=== PATIENT | male | born 1995 | race African-American/Black ===

== ENCOUNTER 2025-04-05 18:57 | Inpatient (IN) ==
--- NOTE | 2025-04-05 19:10 | Emergency Department Note ---
Impression & Plan Syncope, Pneumonia ED Provider Note ED Provider Note NAME: SHLOMO [id number] OMKAR AGE:29 SEX: Male : 1995 ARRIVES VIA: EMS INFORMANT: Patient ED PROVIDER(s): Nancy Perea CHIEF COMPLAINT: syncope HPI: 29-year-old male presents emergency room with complaints of syncope. Patient had been having some pain across his chest. He states that he then had a syncopal episode when he stood up into the middle toilet and his present self. He states that he hit his head and back. He is not really very clear on where he hit his back. He states that since then he has been unable to move his lower extremities or feel them. He states this happened over an hour prior to arrival. States has never had anything like this before. PAST MEDICAL HISTORY:See Below PAST SURGICAL HISTORY:See Below FAMILY HISTORY:See Below SOCIAL HISTORY:See Below HOME MEDICATIONS:See Below ALLERGIES:See Below VITALS:See Below PHYSICAL EXAMINATION: GENERAL: alert, well appearing, well nourished, no distress, non-toxic EYE EXAM: normal conjunctiva, PERRL and EOM's grossly intact OROPHARYNX: no exudate, no erythema, lips, buccal mucosa, and tongue normal and mucous membranes are moist NECK: supple, no nuchal rigidity, no adenopathy, non-tender LUNGS: Clear to auscultation. Normal chest wall mechanics, no w/r/r HEART: no murmurs, S1 normal and S2 normal ABDOMEN: abdomen soft, non-tender, normo-active bowel sounds, no masses, no rebound or guarding. BACK: Back is symmetrical on inspection and there is no deformity, no midline tenderness, no CVA tenderness. SKIN: no rashes, petechiae, orbruising UPPER EXTREMITIES: upper extremities are grossly normal. FROM, nml pulses b/l. LOWER EXTREMITIES: No pitting edema. FROM, nml pulses b/l. NEURO EXAM: Normal sensorium, cranial nerves II-XII grossly intact, normal speech, no facial droop,nogross weakness of arms, no gross weakness of legs. Gross sensation intact. No ataxia. Vital Signs: reviewed and remarkable Differential Diagnosis: Fracture, dislocation, contusion, intra-abdominal, pneumothorax, intrathoracic, intracranial, neurologic, compartment syndrome, rhabdomyolysis, as well as other pathologies. MEDICAL DECISION MAKIN-year-old male presents emergency room with complaints of syncopal with fall and lower extremity weakness and numbness. Spoke with orthospine, they recommend MRI of thoracic and lumbar. Agreeable with admission here if within normal limits. Hospitalist admission given syncope and pneumonia. Consultation(s): orthospine 0157: Discussed with Dr. Alexandre for additional inpatient evaluation and mgmt. ER Treatment Provided: See below Diagnostics Interpreted By Me: -ECG: EKG shows normal sinus rhythm at a rate of [address] changes. -Cardiac Monitoring: An order was placed for continuous cardiac monitoring. The monitor shows a rate of 68 with NS rhythm. -Laboratory studies: As stated above and show below. -Imaging studies: CXR - pna, CT head - no acute, CT C-spine - no acute, CTA Chest - PNA, CT T and L spine - no acute Triage Nursing Note Reviewed Prior/Outside Records Reviewed Procedures: [] Critical Care: [] Past Med/Surg History Problem List (Updated 04/06/25 @ 01:58 by Victoria Mackey DO) Pneumonia (Acute) Syncope (Acute) Social History Smoking Status: Former smoker Hx Alcohol Use: No Hx Substance Use: No Preferred Language: [place] Required: No Beliefs That Will Affect Care: None Current Living Situation: Other Feels Safe at Home: Yes Allergies Allergies Allergy/AdvReac Type Severity Reaction Status Date / Time shellfish derived Allergy Unknown Unknown Verified 04/06/25 04:45 Home Meds Home Medications Medication Instructions Recorded Confirmed duloxetine 30 mg capsule,delayed 30 mg PO DAILY 04/06/25 04/06/25 release risperidone 0.5 mg tablet 0.5 mg PO BID 04/06/25 04/06/25 (Risperdal) Results & Data (ED) Vital Signs Vital Signs - 24 hr 04/05/25 19:00 04/05/25 19:00 04/05/25 19:00 Temperature 36.6 C Temperature Source Pulse Rate 66 66 Pulse Rate [Apical] Pulse Rhythm Pulse Rhythm [Apical] Pulse Strength Pulse Strength [Apical] Respiratory Rate 19 19 Respiratory Effort / Characteristics Respiratory Depth Respiratory Pattern Blood Pressure 131/93 Blood Pressure [Right Arm] Blood Pressure Mean [Right Arm] Blood Pressure Position Blood Pressure Position [Right Arm] Pulse Oximetry 100 100 100 Oxygen Delivery Method Room Air Room Air Room Air Oxygen Flow Rate 0 Sepsis Recent Fever Within 48 Hours Sepsis New/Unexplained Change in Mental Status Sepsis Action Taken by Nursing 04/05/25 19:00 04/05/25 19:02 04/05/25 19:05 Temperature 36.6 C 36.7 C Temperature Source Oral Oral Pulse Rate 67 Pulse Rate [Apical] 66 Pulse Rhythm Regular Pulse Rhythm [Apical] Regular Pulse Strength Normal Pulse Strength [Apical] Normal Respiratory Rate 16 Respiratory Effort / Characteristics Non-Labored Spontaneous Non-Labored Spontaneous Respiratory Depth Normal Normal Respiratory Pattern Regular Regular Blood Pressure Blood Pressure [Right Arm] 131/93 Blood Pressure Mean [Right Arm] 105 Blood Pressure Position Lying Blood Pressure Position [Right Arm] Lying Pulse Oximetry 99 Oxygen Delivery Method Room Air Room Air Oxygen Flow Rate Sepsis Recent Fever Within 48 Hours No Sepsis New/Unexplained Change in Mental Status No Sepsis Action Taken by Nursing No Action Required 04/05/25 19:05 04/05/25 20:00 04/05/25 21:00 Temperature 36.6 C 36.6 C Temperature Source Oral Oral Pulse Rate Pulse Rate [Apical] 73 66 Pulse Rhythm Pulse Rhythm [Apical] Regular Regular Pulse Strength Pulse Strength [Apical] Normal Normal Respiratory Rate 17 17 18 Respiratory Effort / Characteristics Non-Labored Spontaneous Non-Labored Spontaneous Respiratory Depth Normal Normal Respiratory Pattern Regular Regular Blood Pressure Blood Pressure [Right Arm] 125/93 117/81 Blood Pressure Mean [Right Arm] 103 93 Blood Pressure Position Blood Pressure Position [Right Arm] Lying Lying Pulse Oximetry 98 98 95 Oxygen Delivery Method Room Air Room Air Room Air Oxygen Flow Rate Sepsis Recent Fever Within 48 Hours Sepsis New/Unexplained Change in Mental Status Sepsis Action Taken by Nursing 04/05/25 22:00 04/06/25 00:00 04/06/25 01:00 Temperature 36.6 C Temperature Source Oral Pulse Rate Pulse Rate [Apical] 79 92 H 66 Pulse Rhythm Pulse Rhythm [Apical] Regular Regular Regular Pulse Strength Pulse Strength [Apical] Normal Normal Normal Respiratory Rate 18 17 17 Respiratory Effort / Characteristics Non-Labored Spontaneous Non-Labored Spontaneous Non-Labored Spontaneous Respiratory Depth Normal Normal Normal Respiratory Pattern Regular Blood Pressure Blood Pressure [Right Arm] 116/82 128/81 125/76 Blood Pressure Mean [Right Arm] 93 96 92 Blood Pressure Position Blood Pressure Position [Right Arm] Lying Lying Lying Pulse Oximetry 96 98 97 Oxygen Delivery Method Room Air Room Air Room Air Oxygen Flow Rate Sepsis Recent Fever Within 48 Hours Sepsis New/Unexplained Change in Mental Status Sepsis Action Taken by Nursing 04/06/25 02:00 04/06/25 03:00 Temperature Temperature Source Pulse Rate Pulse Rate [Apical] 68 69 Pulse Rhythm Pulse Rhythm [Apical] Regular Pulse Strength Pulse Strength [Apical] Normal Respiratory Rate 17 17 Respiratory Effort / Characteristics Non-Labored Spontaneous Non-Labored Spontaneous Respiratory Depth Normal Normal Respiratory Pattern Regular Regular Blood Pressure Blood Pressure [Right Arm] 128/84 Blood Pressure Mean [Right Arm] 98 Blood Pressure Position Blood Pressure Position [Right Arm] Pulse Oximetry 99 Oxygen Delivery Method Room Air Oxygen Flow Rate Sepsis Recent Fever Within 48 Hours Sepsis New/Unexplained Change in Mental Status Sepsis Action Taken by Nursing Laboratory Data 04/05/25 19:08 04/05/25 19:08 Lab Results 04/05/25 04/05/25 Range/Units 19:08 19:10 WBC 6.63 (4.8-10.8) K/ul RBC 5.32 (4.70-6.10) M/uL Hgb 16.0 (14.0-18.0) g/dL POC Hgb 16.0 (14.0-18.0) g/dl Hct 46.2 (42.0-52.0) % POC Hct 47 (42-52) % MCV 86.8 (80.0-100.0) fL MCH 30.1 (25.0-34.0) pg MCHC 34.6 (32.0-36.0) g/dL RDW Std Deviation 37.4 (36.4-46.3) fL RDW Coeff of Anand 11.9 (11.5-14.5) % Plt Count 220 (130-400) K/uL MPV 8.7 L (9.4-12.4) fL Immature Gran % (Auto) 0.3 % Neut % (Auto) 72.9 % Lymph % (Auto) 11.5 % Borden % (Auto) 9.5 % Eos % (Auto) 5.3 % Baso % (Auto) 0.5 % Neut # (Auto) 4.84 (1.40-6.50) K/uL Lymph # (Auto) 0.76 L (1.20-3.40) K/uL Borden # (Auto) 0.63 H (0.11-0.59) K/uL Eos # (Auto) 0.35 (0.00-0.50) K/uL Baso # (Auto) 0.03 (0.00-0.20) K/uL Immature Gran # (Auto) 0.02 (0.01-0.20) K/uL POC Sodium 139 (135-144) mmol/L Sodium 136 (136-145) mmol/L POC Potassium 4.1 (3.3-5.0) mmol/L Potassium 4.0 (3.5-5.1) mmol/L POC Chloride 104 (101-112) mmol/L Chloride 106 (98-107) mmol/L Carbon Dioxide 24 (21-32) mmol/L POC Total CO2 22 L (24-31) mmol/L Anion Gap 6 (3-11) POC Anion Gap 18.0 (16-25) mmol/L POC BUN 10 (7-18) mg/dl BUN 10 (6-23) mg/dl Creatinine 0.88 (0.6-1.4) mg/dl POC Creatinine 0.9 (0.6-1.3) mg/dl Est Cr Clr Drug Dosing 130.7 ml/min eGFR 118.63 BUN/Creatinine Ratio 11.4 (10-20) Glucose 102 H (70-99(Fasting)) mg/dl POC Glucose (other) 100 H (70-99) mg/dl Calcium 9.4 (8.6-10.3) mg/dl POC Ioniz Calcium Dany 1.22 (1.12-1.32) mmol/l Total Bilirubin 0.5 (0.2-1.0) mg/dl AST 22 (13-39) U/L ALT 10 (7-52) U/L Alkaline Phosphatase 74 (34-104) U/L Troponin I High Sens 4.3 (0-20) pg/ml Total Protein 7.1 (6.0-8.3) gm/dl Albumin 4.2 (3.4-5.0) gm/dl Globulin 2.9 (2.5-4.0) gm/dl Albumin/Globulin Ratio 1.4 (0.9-2) Lipase 10 L (11-82) U/L Administered Medications Discontinued Medications Doxycycline Hyclate (Doxycycline Hyclate 100 Mg Cap) 100 mg PO NOW STA Stop: 04/05/25 20:40 Last Admin: 04/05/25 21:52 Dose: Not Given Documented By: DEMARCUS Hydromorphone HCl (Hydromorphone Inj 0.5 Mg/0.5 Ml Syr) 0.5 mg IV NOW STA Stop: 04/05/25 20:34 Last Admin: 04/05/25 20:39 Dose: 0.5 mg Documented By: DEMARCUS Cefepime HCl (Maxipime 2000mg) 2,000 mg in 20 mls @ 5 mls/min IV NOW STA; Protocol Stop: 04/05/25 20:42 Last Admin: 04/05/25 21:25 Dose: 5 mls/min Documented By: DEMARCUS Ioversol (Optiray 320 125ml) 118 ml IV ONCE ONE Stop: 04/05/25 19:35 Last Admin: 04/05/25 19:34 Dose: 118 ml Documented By: NELL Miscellaneous Information (Patient's Allergy Info Needs Entered) 1 each N/A NOW STA Stop: 04/06/25 04:33 Last Admin: 04/06/25 04:47 Dose: 1 each Documented By: JACEK Imaging Data Radiologist's Impression: Cervical Spine CT 04/05/25 19:06 CT CERVICAL SPINE WITHOUT CONTRAST: HISTORY: Trauma TECHNIQUE: Noncontrast CT examination of the cervical thoracic lumbar spine is performed. Coronal and sagittal reformats were created. COMPARISON: None. FINDINGS: CERVICAL SPINE: There is no significant vertebral body height loss. No acute traumatic fracture identified. There is no significant spondylolisthesis. Visualized soft tissues of neck are unremarkable. IMPRESSION: No acute traumatic fracture of the cervical spine. Multilevel degenerative changes as above Chronic right orbital floor defect. Electronically signed by Wally Alonzo 04-05-2025 8:[address] 04/05/25 19:06 CT HEAD: HISTORY: Headaches TECHNIQUE: Noncontrast CT examination of the head is performed. Coronal and sagittal reformats were created. COMPARISON: FINDINGS: There is no evidence of intracranial hemorrhage, focal mass effect or midline shift. No fluid collection is identified. The ventricular system is midline and symmetric. No evidence of acute major vascular territory infarction. No calvarial fracture is identified. The paranasal sinuses and mastoids are well aerated. IMPRESSION: No acute intracranial process identified. Electronically signed by Wally Alonzo 04-05-2025 7:[address] 04/05/25 19:06 CT LUMBAR SPINE WITHOUT CONTRAST: HISTORY: TRAUMA TECHNIQUE: Noncontrast CT examination of the lumbar spine is performed. Coronal and sagittal reformats were created. COMPARISON: None. FINDINGS: LUMBAR SPINE: There is no significant vertebral body height loss. No acute traumatic fracture identified. There is no significant spondylolisthesis. Usual lumbar lordosis is preserved. Mild multilevel degenerative changes characterized by disc space loss, broad based disc bulge/herniations with endplate changes of the vertebral bodies with small marginal osteophytes as well as bilateral facet hypertrophy and thickening of the ligamentum flavum resulting in crowding of the subarticular recesses and narrowing of neural foramina worst at L4-S1. IMPRESSION: No acute traumatic fracture of the lumbar spine. Multilevel degenerative changes as above Electronically signed by Wally Alonzo 04-05-2025 8:[address] 04/05/25 19:06 CT THORACIC SPINE WITHOUT CONTRAST: HISTORY: TRAUMA TECHNIQUE: Noncontrast CT examination of the thoracic spine is performed. Coronal and sagittal reformats were created. COMPARISON: None. FINDINGS: THORACIC SPINE: There is no significant vertebral body height loss. No acute traumatic fracture identified. There is no significant spondylolisthesis. Usual thoracic kyphosis is preserved. Multilevel degenerative changes characterized by disc space loss with endplate changes of the vertebral bodies with small marginal osteophytes. IMPRESSION: No acute traumatic fracture of the thoracic spine. Multilevel degenerative changes as above Electronically signed by Wally Alonzo 04-05-2025 7:59 PM Chest CTA 04/05/25 19:07 CT PULMONARY ANGIOGRAM. HISTORY: Chest pain TECHNIQUE: Enhanced CT examination of the chest was performed using pulmonary embolism protocol. IV CONTRAST: 100 mL of OMNIPAQUE 300 COMPARISON: FINDINGS: PULMONARY ARTERIES: No filling defect identified to the segmental level. LYMPH NODES: No lymphadenopathy by size criteria. CARDIOVASCULAR: Normal cardiac size. No pericardial effusion. No aortic aneurysm. There are coronary artery calcifications in keeping with coronary artery disease. MEDIASTINUM: No solid or cystic mediastinal masses. The esophagus is normally decompressed. LUNGS/PLEURA: The central tracheo-bronchial tree is patent. Patchy infiltrates in the left upper lobe (series 10, image 91). No pleural effusion or pneumothorax. No suspicious pulmonary nodules. BONES: No suspicious osseous lesions. OTHER: There is a large amount of intravascular contrast noted over the left shoulder and the left chest wall that also demonstrate swelling. This could be due to IV infiltration. Please clinically correlate. VISUALIZED LOWER NECK: Unremarkable. VISUALIZED UPPER ABDOMEN: Unremarkable IMPRESSION: No pulmonary embolism identified to the segmental level. No evidence of definite trauma in the thorax. Patchy pneumonia in the left upper lobe There is a large amount of intravascular contrast noted over the left shoulder and the left chest wall that also demonstrate swelling. This could be due to IV infiltration. Please clinically correlate. Electronically signed by Wally Alonzo 04-05-2025 8:20 PM Chest X-Ray 04/05/25 19:07 EXAM: Portable AP chest radiograph TECHNIQUE: AP portable radiograph of the chest was obtained. INDICATION: Trauma Comparison: None FINDINGS: LINES and TUBES: None CARDIOVASCULAR: Cardiac silhouette is normal in size. LUNGS/PLEURA: Patchy infiltrates in the right upper lobe no significant pleural fluid. No discernible pneumothorax. OSSEOUS/OTHER: No displaced acute osseous process identified. IMPRESSION: Patchy pneumonia in the right upper lobe Electronically signed by Wally Alonzo 04-05-2025 8:20 PM Lumbar Spine MRI 04/05/25 21:12 Exam(s): MRI L SPINE Without Contrast EXAM: MR Lumbar Spine Without Intravenous Contrast CLINICAL HISTORY: Reason for exam: low extremity paralysis and paresthesias s/p fall. TECHNIQUE: Magnetic resonance images of the lumbar spine without intravenous contrast in multiple planes. COMPARISON: No relevant prior studies available. FINDINGS: Vertebrae: Unremarkable. No acute fracture. Spinal cord: Unremarkable. Normal signal. Soft tissues: Unremarkable. DISCS/SPINAL CANAL/NEURAL FORAMINA: L1-L2: Unremarkable. No significant disc disease. No stenosis. L2-L3: Unremarkable. No significant disc disease. No stenosis. L3-L4: Unremarkable. No significant disc disease. No stenosis. L4-L5: Unremarkable. No significant disc disease. No stenosis. L5-S1: Unremarkable. No significant disc disease. No stenosis. IMPRESSION: Normal lumbar spine MRI. Electronically signed by: Mendoza Hughes MD 04/06/25 01:15 AM Thoracic Spine MRI 04/05/25 21:12 Exam(s): MRI T SPINE Without Contrast EXAM: MR Thoracic Spine Without Intravenous Contrast CLINICAL HISTORY: Reason for exam: low extremity paralysis and paresthesias s/p fall. TECHNIQUE: Magnetic resonance images of the thoracic spine without intravenous contrast in multiple planes. COMPARISON: CT T-spine from 04/05/2025 FINDINGS: Vertebrae: Unremarkable. No acute fracture. Discs/spinal canal/neural foramina: No acute findings. No significant disc disease. No spinal canal stenosis. Spinal cord: Unremarkable. Normal signal. Soft tissues: Unremarkable. IMPRESSION: Normal thoracic spine MRI. Electronically signed by: Mendoza Hughes MD 04/06/25 01:10 AM Discharge Plan Visit Data Chief Complaint: Trauma Stated Complaint: FALL, HIT HEAD, NECK PAIN, CANNOT FEEL BELOW WAIST ED Provider: Rachele Perea Discharge Problem: Syncope, Pneumonia Patient Disposition: Being Evaluated by Hospitalist Condition: Fair Discharge Instructions Interventions: ED Discharge Assessment Last Done: 04/06/25 03:55
[2025-04-05 19:23] LABS: Hematocrit (blood only) 46.2 % (42.0-52.0); Hemoglobin 16.0 g/dL (14.0-18.0); Immature Granulocytes # (auto) 0.02 K/uL (0.01-0.20); Immature Granulocytes % (auto) 0.3 %; Mean Corpuscular Hemoglobin 30.1 pg (25.0-34.0); Mean Corpuscular Volume 86.8 fL (80.0-100.0); Platelet Count 220 K/uL (130-400); RDW Standard Deviation 37.4 fL (36.4-46.3); Red Blood Count 5.32 M/uL (4.70-6.10); White Blood Count 6.63 K/ul (4.8-10.8)
[2025-04-05] MEDS: OPTIRAY 320 125ml IV ONE (19:34)
[2025-04-05 19:39] LABS: Alanine Aminotransferase 10.0 U/L (7-52); Albumin Globulin Ratio 1.4 (0.9-2); Albumin Level 4.2 gm/dl (3.4-5.0); Alkaline Phosphatase 74.0 U/L (34-104); Anion Gap 6.0 (3-11); Bilirubin,Total 0.5 mg/dl (0.2-1.0); Blood Urea Nitrogen 10.0 mg/dl (6-23); Calcium 9.4 mg/dl (8.6-10.3); Carbon Dioxide 24.0 mmol/L (21-32); Chloride 106.0 mmol/L (98-107); Creatinine Clr Calc Pharmacy 130.7 ml/min; Globulin 2.9 gm/dl (2.5-4.0); Glucose 102.0 mg/dl (70-99(Fasting)); Lipase 10.0 U/L (11-82); Potassium 4.0 mmol/L (3.5-5.1); Sodium 136.0 mmol/L (136-145); Total Protein 7.1 gm/dl (6.0-8.3)
--- NOTE | 2025-04-05 20:00 | CT Scan Report ---
CT HEAD: HISTORY: Headaches TECHNIQUE: Noncontrast CT examination of the head is performed. Coronal and sagittal reformats were created. COMPARISON: FINDINGS: There is no evidence of intracranial hemorrhage, focal mass effect or midline shift. No fluid collection is identified. The ventricular system is midline and symmetric. No evidence of acute major vascular territory infarction. No calvarial fracture is identified. The paranasal sinuses and mastoids are well aerated. IMPRESSION: No acute intracranial process identified. Electronically signed by Wally Alonzo 04-05-2025 7:59 PM
--- NOTE | 2025-04-05 20:01 | CT Scan Report ---
CT THORACIC SPINE WITHOUT CONTRAST: HISTORY: TRAUMA TECHNIQUE: Noncontrast CT examination of the thoracic spine is performed. Coronal and sagittal reformats were created. COMPARISON: None. FINDINGS: THORACIC SPINE: There is no significant vertebral body height loss. No acute traumatic fracture identified. There is no significant spondylolisthesis. Usual thoracic kyphosis is preserved. Multilevel degenerative changes characterized by disc space loss with endplate changes of the vertebral bodies with small marginal osteophytes. IMPRESSION: No acute traumatic fracture of the thoracic spine. Multilevel degenerative changes as above Electronically signed by Wally Alonzo 04-05-2025 7:59 PM
--- NOTE | 2025-04-05 20:08 | CT Scan Report ---
CT CERVICAL SPINE WITHOUT CONTRAST: HISTORY: Trauma TECHNIQUE: Noncontrast CT examination of the cervical thoracic lumbar spine is performed. Coronal and sagittal reformats were created. COMPARISON: None. FINDINGS: CERVICAL SPINE: There is no significant vertebral body height loss. No acute traumatic fracture identified. There is no significant spondylolisthesis. Visualized soft tissues of neck are unremarkable. IMPRESSION: No acute traumatic fracture of the cervical spine. Multilevel degenerative changes as above Chronic right orbital floor defect. Electronically signed by Wally Alonzo 04-05-2025 8:08 PM
--- NOTE | 2025-04-05 20:09 | CT Scan Report ---
CT LUMBAR SPINE WITHOUT CONTRAST: HISTORY: TRAUMA TECHNIQUE: Noncontrast CT examination of the lumbar spine is performed. Coronal and sagittal reformats were created. COMPARISON: None. FINDINGS: LUMBAR SPINE: There is no significant vertebral body height loss. No acute traumatic fracture identified. There is no significant spondylolisthesis. Usual lumbar lordosis is preserved. Mild multilevel degenerative changes characterized by disc space loss, broad based disc bulge/herniations with endplate changes of the vertebral bodies with small marginal osteophytes as well as bilateral facet hypertrophy and thickening of the ligamentum flavum resulting in crowding of the subarticular recesses and narrowing of neural foramina worst at L4-S1. IMPRESSION: No acute traumatic fracture of the lumbar spine. Multilevel degenerative changes as above Electronically signed by Wally Alonzo 04-05-2025 8:08 PM
--- NOTE | 2025-04-05 20:20 | XRay Report ---
EXAM: Portable AP chest radiograph TECHNIQUE: AP portable radiograph of the chest was obtained. INDICATION: Trauma Comparison: None FINDINGS: LINES and TUBES: None CARDIOVASCULAR: Cardiac silhouette is normal in size. LUNGS/PLEURA: Patchy infiltrates in the right upper lobe no significant pleural fluid. No discernible pneumothorax. OSSEOUS/OTHER: No displaced acute osseous process identified. IMPRESSION: Patchy pneumonia in the right upper lobe Electronically signed by Wally Alonzo 04-05-2025 8:20 PM
--- NOTE | 2025-04-05 20:20 | CT Scan Report ---
CT PULMONARY ANGIOGRAM. HISTORY: Chest pain TECHNIQUE: Enhanced CT examination of the chest was performed using pulmonary embolism protocol. IV CONTRAST: 100 mL of OMNIPAQUE 300 COMPARISON: FINDINGS: PULMONARY ARTERIES: No filling defect identified to the segmental level. LYMPH NODES: No lymphadenopathy by size criteria. CARDIOVASCULAR: Normal cardiac size. No pericardial effusion. No aortic aneurysm. There are coronary artery calcifications in keeping with coronary artery disease. MEDIASTINUM: No solid or cystic mediastinal masses. The esophagus is normally decompressed. LUNGS/PLEURA: The central tracheo-bronchial tree is patent. Patchy infiltrates in the left upper lobe (series 10, image 91). No pleural effusion or pneumothorax. No suspicious pulmonary nodules. BONES: No suspicious osseous lesions. OTHER: There is a large amount of intravascular contrast noted over the left shoulder and the left chest wall that also demonstrate swelling. This could be due to IV infiltration. Please clinically correlate. VISUALIZED LOWER NECK: Unremarkable. VISUALIZED UPPER ABDOMEN: Unremarkable IMPRESSION: No pulmonary embolism identified to the segmental level. No evidence of definite trauma in the thorax. Patchy pneumonia in the left upper lobe There is a large amount of intravascular contrast noted over the left shoulder and the left chest wall that also demonstrate swelling. This could be due to IV infiltration. Please clinically correlate. Electronically signed by Wally Alonzo 04-05-2025 8:20 PM
[2025-04-05] MEDS: HYDROmorphone INJ 0.5 MG/0.5 ML SYR IV STA (20:39)
[2025-04-05] MEDS: DOXYCYCLINE HYCLATE 100 MG CAP PO STA (21:25)
[2025-04-05] MEDS: CEFEPIME 2000MG 2,000 MG/20 ML SYR IV STA (21:25)
--- NOTE | 2025-04-06 01:11 | Magnetic Resonance Report ---
Exam(s): MRI T SPINE Without Contrast EXAM: MR Thoracic Spine Without Intravenous Contrast CLINICAL HISTORY: Reason for exam: low extremity paralysis and paresthesias s/p fall. TECHNIQUE: Magnetic resonance images of the thoracic spine without intravenous contrast in multiple planes. COMPARISON: CT T-spine from 04/05/2025 FINDINGS: Vertebrae: Unremarkable. No acute fracture. Discs/spinal canal/neural foramina: No acute findings. No significant disc disease. No spinal canal stenosis. Spinal cord: Unremarkable. Normal signal. Soft tissues: Unremarkable. IMPRESSION: Normal thoracic spine MRI. Electronically signed by: Mendoza Hughes MD 04/06/25 01:10 AM
--- NOTE | 2025-04-06 01:15 | Magnetic Resonance Report ---
Exam(s): MRI L SPINE Without Contrast EXAM: MR Lumbar Spine Without Intravenous Contrast CLINICAL HISTORY: Reason for exam: low extremity paralysis and paresthesias s/p fall. TECHNIQUE: Magnetic resonance images of the lumbar spine without intravenous contrast in multiple planes. COMPARISON: No relevant prior studies available. FINDINGS: Vertebrae: Unremarkable. No acute fracture. Spinal cord: Unremarkable. Normal signal. Soft tissues: Unremarkable. DISCS/SPINAL CANAL/NEURAL FORAMINA: L1-L2: Unremarkable. No significant disc disease. No stenosis. L2-L3: Unremarkable. No significant disc disease. No stenosis. L3-L4: Unremarkable. No significant disc disease. No stenosis. L4-L5: Unremarkable. No significant disc disease. No stenosis. L5-S1: Unremarkable. No significant disc disease. No stenosis. IMPRESSION: Normal lumbar spine MRI. Electronically signed by: Mendoza Hughes MD 04/06/25 01:15 AM
[2025-04-06] MEDS ORDERED: NITROGLYCERIN SL 0.4 MG/TAB TAB SL PRN (03:55)
[2025-04-06] MEDS ORDERED: ACETAMINOPHEN 325 MG TAB PO PRN (03:55)
[2025-04-06] MEDS ORDERED: HYDROmorphone INJ 0.5 MG/0.5 ML SYR IV PRN (03:55)
[2025-04-06] MEDS ORDERED: POLYETHYLENE (MIRALAX) 17 GM PACK PO PRN (03:55)
[2025-04-06] MEDS: SODIUM CHLORIDE 0.9% 1,000 ML IV SCH (05:52)
[2025-04-06 07:26] LABS: Hematocrit (blood only) 44.2 % (42.0-52.0); Hemoglobin 15.1 g/dL (14.0-18.0); Immature Granulocytes # (auto) 0.01 K/uL (0.01-0.20); Immature Granulocytes % (auto) 0.2 %; Mean Corpuscular Hemoglobin 30.1 pg (25.0-34.0); Mean Corpuscular Volume 88.2 fL (80.0-100.0); Platelet Count 205 K/uL (130-400); RDW Standard Deviation 38.4 fL (36.4-46.3); Red Blood Count 5.01 M/uL (4.70-6.10); White Blood Count 6.66 K/ul (4.8-10.8)
--- NOTE | 2025-04-06 07:34 | History & Physical Report ---
Date of Service April 06, 2025 Assessment & Plan (1) Near syncope: Plan: 29-year-old male coming from [facility] with past med history significant for mood disorder presents with near syncope and fall. Patient states he just moved to the [facility] yesterday. He was eating and when he got up he felt lightheaded and fell backwards and hit his head. No loss of consciousness. Patient states since fall is feeling numbness both legs. Says he could not feel his legs but he can feel his feet. Not moving his legs. Patient states has ongoing cough for 2to 3 weeks. Having congestion, stuffy nose and sore throat for 2 to 3 weeks. Has some headache. Feeling hot and cold. Appetite is okay. Currently denies any chest pain. Currently denies any shortness of breath. No nausea. No abdominal pain. Prior to fall was having normal bowel and bladder movements. Hemodynamics are okay. Near syncope Having cold symptoms for 2 to 3 weeks Troponin okay Will for repeat EKG and serial cardiac enzymes and echo Monitoring telemetry If any concern will consult cardiology Pneumonia Having cough CT chest no PE but shows patchy pneumonia in the left upper lobe ER gave cefepime and Doxy Will continue with Rocephin and doxycycline Needs follow-up Fall Lower extremity weakness Patient states since fall he is not able to move his legs Not able to feel the legs except the feet thoracic spine MRI and lumbar spine MRI unremarkable. Cervical spine CT and head CT, thoracic spine CT and lumbar spine CT unremarkable Will monitor Can consult orthospine or neurology Mood disorder Continue home medications DVT prophylaxis Lovenox Disposition Telemetry Full code. Admission and Anticipated Discharge Date Admission Date: April 06, 2025 History of Present Illness Chief Complaint: Near syncope Primary Care Provider: CASANDRA Manzo 29-year-old male coming from [facility] with past med history significant for mood disorder presents with near syncope and fall. Patient states he just moved to the [facility] yesterday. He was eating and when he got up he felt lightheaded and fell backwards and hit his head. No loss of consciousness. Patient states since fall is feeling numbness both legs. Says he could not feel his legs but he can feel his feet. Not moving his legs. Patient states has ongoing cough for 2to 3 weeks. Having congestion, stuffy nose and sore throat for 2 to 3 weeks. Has some headache. Feeling hot and cold. Appetite is okay. Currently denies any chest pain. Currently denies any shortness of breath. No nausea. No abdominal pain. Prior to fall was having normal bowel and bladder movements. Hemodynamics are okay. Past medical history. As mentioned above. Past surgical history. Patient denies any surgeries. Social history. Used to smoke e-cigarettes. Likely twice alcohol in the past. Used to smoke marijuana Family history. Mother had heart problems. Allergies Allergy/AdvReac Type Severity Reaction Status Date / Time shellfish derived Allergy Unknown Unknown Verified 04/06/25 04:45 Home Medications Medication Instructions Recorded Confirmed Type duloxetine 30 mg capsule,delayed 30 mg PO DAILY 04/06/25 04/06/25 History release risperidone 0.5 mg tablet 0.5 mg PO BID 04/06/25 04/06/25 History (Risperdal) Past Med/Surg History Problem List (Updated 04/06/25 @ 07:40 by Jacob Alexandre MD) Near syncope Pneumonia (Acute) Syncope (Acute) Social History Smoking Status: Former smoker Hx Alcohol Use: No Hx Substance Use: No Preferred Language: Tongan Staff Certified Nurse Midwife Required: No Beliefs That Will Affect Care: None Current Living Situation: Other Feels Safe at Home: Yes Review of Systems Review of Systems: All systems reviewed & are unremarkable except as noted in HPI & below Physical Exam Physical Exam: General- Not in acute distress. Head- atraumatic Eyes- PERRL. ENT- oropharynx clear Neck- supple, no JVD. Lungs- clear to auscultation no wheezing or crackles. Heart- regular rhythm; no murmur, no gallop. Abdomen- normal bowel sounds, soft, nontender, no distension Extremities- no pretibial edema, no erytehma Neuro- alert, oriented x PERRL, no facial palsy; no dysarthria; no sensation in legs except feet, not moving legs Results & Data Results & Data Vital Signs (Past 12 Hours) Vital Signs Temp Pulse Resp BP Pulse Ox O2 Del Method 04/06/25 04:02 88 16 108/71 98 Room Air 04/06/25 03:00 69 17 128/84 99 Room Air 04/06/25 02:00 68 17 04/06/25 01:00 66 17 125/76 97 Room Air 04/06/25 00:00 92 H 17 128/81 98 Room Air 04/05/25 22:00 36.6 C 79 18 116/82 96 Room Air 04/05/25 21:00 36.6 C 66 18 117/81 95 Room Air 04/05/25 20:00 36.6 C 73 17 125/93 98 Room Air Diagnostic Findings Laboratory Results WBC 6.66 K/ul (4.8-10.8) 04/06/25 07:00 RBC 5.01 M/uL (4.70-6.10) 04/06/25 07:00 Hgb 15.1 g/dL (14.0-18.0) 04/06/25 07:00 POC Hgb 16.0 g/dl (14.0-18.0) 04/05/25 19:10 Hct 44.2 % (42.0-52.0) 04/06/25 07:00 POC Hct 47 % (42-52) 04/05/25 19:10 MCV 88.2 fL (80.0-100.0) 04/06/25 07:00 MCH 30.1 pg (25.0-34.0) 04/06/25 07:00 MCHC 34.2 g/dL (32.0-36.0) 04/06/25 07:00 RDW Std Deviation 38.4 fL (36.4-46.3) 04/06/25 07:00 RDW Coeff of Anand 12.0 % (11.5-14.5) 04/06/25 07:00 Plt Count 205 K/uL (130-400) 04/06/25 07:00 MPV 8.9 fL (9.4-12.4) L 04/06/25 07:00 Immature Gran % (Auto) 0.2 % 04/06/25 07:00 Neut % (Auto) 68.9 % 04/06/25 07:00 Lymph % (Auto) 14.7 % 04/06/25 07:00 Slope % (Auto) 11.7 % 04/06/25 07:00 Eos % (Auto) 4.2 % 04/06/25 07:00 Baso % (Auto) 0.3 % 04/06/25 07:00 Neut # (Auto) 4.59 K/uL (1.40-6.50) 04/06/25 07:00 Lymph # (Auto) 0.98 K/uL (1.20-3.40) L 04/06/25 07:00 Slope # (Auto) 0.78 K/uL (0.11-0.59) H 04/06/25 07:00 Eos # (Auto) 0.28 K/uL (0.00-0.50) 04/06/25 07:00 Baso # (Auto) 0.02 K/uL (0.00-0.20) 04/06/25 07:00 Immature Gran # (Auto) 0.01 K/uL (0.01-0.20) 04/06/25 07:00 POC Sodium 139 mmol/L (135-144) 04/05/25 19:10 Sodium 136 mmol/L (136-145) 04/05/25 19:08 POC Potassium 4.1 mmol/L (3.3-5.0) 04/05/25 19:10 Potassium 4.0 mmol/L (3.5-5.1) 04/05/25 19:08 POC Chloride 104 mmol/L (101-112) 04/05/25 19:10 Chloride 106 mmol/L (98-107) 04/05/25 19:08 Carbon Dioxide 24 mmol/L (21-32) 04/05/25 19:08 POC Total CO2 22 mmol/L (24-31) L 04/05/25 19:10 Anion Gap 6 (3-11) 04/05/25 19:08 POC Anion Gap 18.0 mmol/L (16-25) 04/05/25 19:10 POC BUN 10 mg/dl (7-18) 04/05/25 19:10 BUN 10 mg/dl (6-23) 04/05/25 19:08 Creatinine 0.88 mg/dl (0.6-1.4) 04/05/25 19:08 POC Creatinine 0.9 mg/dl (0.6-1.3) 04/05/25 19:10 Est Cr Clr Drug Dosing 130.7 ml/min 04/05/25 19:08 eGFR 118.63 04/05/25 19:08 BUN/Creatinine Ratio 11.4 (10-20) 04/05/25 19:08 Glucose 102 mg/dl (70-99(Fasting)) H 04/05/25 19:08 POC Glucose (other) 100 mg/dl (70-99) H 04/05/25 19:10 Calcium 9.4 mg/dl (8.6-10.3) 04/05/25 19:08 POC Ioniz Calcium Dany 1.22 mmol/l (1.12-1.32) 04/05/25 19:10 Total Bilirubin 0.5 mg/dl (0.2-1.0) 04/05/25 19:08 AST 22 U/L (13-39) 04/05/25 19:08 ALT 10 U/L (7-52) 04/05/25 19:08 Alkaline Phosphatase 74 U/L (34-104) 04/05/25 19:08 Troponin I High Sens 4.3 pg/ml (0-20) 04/05/25 19:08 Total Protein 7.1 gm/dl (6.0-8.3) 04/05/25 19:08 Albumin 4.2 gm/dl (3.4-5.0) 04/05/25 19:08 Globulin 2.9 gm/dl (2.5-4.0) 04/05/25 19:08 Albumin/Globulin Ratio 1.4 (0.9-2) 04/05/25 19:08 Lipase 10 U/L (11-82) L 04/05/25 19:[address] 04/05/25 19:06 CT CERVICAL SPINE WITHOUT CONTRAST: HISTORY: Trauma TECHNIQUE: Noncontrast CT examination of the cervical thoracic lumbar spine is performed. Coronal and sagittal reformats were created. COMPARISON: None. FINDINGS: CERVICAL SPINE: There is no significant vertebral body height loss. No acute traumatic fracture identified. There is no significant spondylolisthesis. Visualized soft tissues of neck are unremarkable. IMPRESSION: No acute traumatic fracture of the cervical spine. Multilevel degenerative changes as above Chronic right orbital floor defect. Electronically signed by Wally Alonzo 04-05-2025 8:[address] 04/05/25 19:06 CT HEAD: HISTORY: Headaches TECHNIQUE: Noncontrast CT examination of the head is performed. Coronal and sagittal reformats were created. COMPARISON: FINDINGS: There is no evidence of intracranial hemorrhage, focal mass effect or midline shift. No fluid collection is identified. The ventricular system is midline and symmetric. No evidence of acute major vascular territory infarction. No calvarial fracture is identified. The paranasal sinuses and mastoids are well aerated. IMPRESSION: No acute intracranial process identified. Electronically signed by Wally Alonzo 04-05-2025 7:[address] 04/05/25 19:06 CT LUMBAR SPINE WITHOUT CONTRAST: HISTORY: TRAUMA TECHNIQUE: Noncontrast CT examination of the lumbar spine is performed. Coronal and sagittal reformats were created. COMPARISON: None. FINDINGS: LUMBAR SPINE: There is no significant vertebral body height loss. No acute traumatic fracture identified. There is no significant spondylolisthesis. Usual lumbar lordosis is preserved. Mild multilevel degenerative changes characterized by disc space loss, broad based disc bulge/herniations with endplate changes of the vertebral bodies with small marginal osteophytes as well as bilateral facet hypertrophy and thickening of the ligamentum flavum resulting in crowding of the subarticular recesses and narrowing of neural foramina worst at L4-S1. IMPRESSION: No acute traumatic fracture of the lumbar spine. Multilevel degenerative changes as above Electronically signed by Wally Alonzo 04-05-2025 8:[address] 04/05/25 19:06 CT THORACIC SPINE WITHOUT CONTRAST: HISTORY: TRAUMA TECHNIQUE: Noncontrast CT examination of the thoracic spine is performed. Coronal and sagittal reformats were created. COMPARISON: None. FINDINGS: THORACIC SPINE: There is no significant vertebral body height loss. No acute traumatic fracture identified. There is no significant spondylolisthesis. Usual thoracic kyphosis is preserved. Multilevel degenerative changes characterized by disc space loss with endplate changes of the vertebral bodies with small marginal osteophytes. IMPRESSION: No acute traumatic fracture of the thoracic spine. Multilevel degenerative changes as above Electronically signed by Wally Alonzo 04-05-2025 7:59 PM Chest CTA 04/05/25 19:07 CT PULMONARY ANGIOGRAM. HISTORY: Chest pain TECHNIQUE: Enhanced CT examination of the chest was performed using pulmonary embolism protocol. IV CONTRAST: 100 mL of OMNIPAQUE 300 COMPARISON: FINDINGS: PULMONARY ARTERIES: No filling defect identified to the segmental level. LYMPH NODES: No lymphadenopathy by size criteria. CARDIOVASCULAR: Normal cardiac size. No pericardial effusion. No aortic aneurysm. There are coronary artery calcifications in keeping with coronary artery disease. MEDIASTINUM: No solid or cystic mediastinal masses. The esophagus is normally decompressed. LUNGS/PLEURA: The central tracheo-bronchial tree is patent. Patchy infiltrates in the left upper lobe (series 10, image 91). No pleural effusion or pneumothorax. No suspicious pulmonary nodules. BONES: No suspicious osseous lesions. OTHER: There is a large amount of intravascular contrast noted over the left shoulder and the left chest wall that also demonstrate swelling. This could be due to IV infiltration. Please clinically correlate. VISUALIZED LOWER NECK: Unremarkable. VISUALIZED UPPER ABDOMEN: Unremarkable IMPRESSION: No pulmonary embolism identified to the segmental level. No evidence of definite trauma in the thorax. Patchy pneumonia in the left upper lobe There is a large amount of intravascular contrast noted over the left shoulder and the left chest wall that also demonstrate swelling. This could be due to IV infiltration. Please clinically correlate. Electronically signed by Wally Alonzo 04-05-2025 8:20 PM Chest X-Ray 04/05/25 19:07 EXAM: Portable AP chest radiograph TECHNIQUE: AP portable radiograph of the chest was obtained. INDICATION: Trauma Comparison: None FINDINGS: LINES and TUBES: None CARDIOVASCULAR: Cardiac silhouette is normal in size. LUNGS/PLEURA: Patchy infiltrates in the right upper lobe no significant pleural fluid. No discernible pneumothorax. OSSEOUS/OTHER: No displaced acute osseous process identified. IMPRESSION: Patchy pneumonia in the right upper lobe Electronically signed by Wally Aolnzo 04-05-2025 8:20 PM Lumbar Spine MRI 04/05/25 21:12 Exam(s): MRI L SPINE Without Contrast EXAM: MR Lumbar Spine Without Intravenous Contrast CLINICAL HISTORY: Reason for exam: low extremity paralysis and paresthesias s/p fall. TECHNIQUE: Magnetic resonance images of the lumbar spine without intravenous contrast in multiple planes. COMPARISON: No relevant prior studies available. FINDINGS: Vertebrae: Unremarkable. No acute fracture. Spinal cord: Unremarkable. Normal signal. Soft tissues: Unremarkable. DISCS/SPINAL CANAL/NEURAL FORAMINA: L1-L2: Unremarkable. No significant disc disease. No stenosis. L2-L3: Unremarkable. No significant disc disease. No stenosis. L3-L4: Unremarkable. No significant disc disease. No stenosis. L4-L5: Unremarkable. No significant disc disease. No stenosis. L5-S1: Unremarkable. No significant disc disease. No stenosis. IMPRESSION: Normal lumbar spine MRI. Electronically signed by: Mendoza Hughes MD 04/06/25 01:15 AM Thoracic Spine MRI 04/05/25 21:12 Exam(s): MRI T SPINE Without Contrast EXAM: MR Thoracic Spine Without Intravenous Contrast CLINICAL HISTORY: Reason for exam: low extremity paralysis and paresthesias s/p fall. TECHNIQUE: Magnetic resonance images of the thoracic spine without intravenous contrast in multiple planes. COMPARISON: CT T-spine from 04/05/2025 FINDINGS: Vertebrae: Unremarkable. No acute fracture. Discs/spinal canal/neural foramina: No acute findings. No significant disc disease. No spinal canal stenosis. Spinal cord: Unremarkable. Normal signal. Soft tissues: Unremarkable. IMPRESSION: Normal thoracic spine MRI. Electronically signed by: Mendoza Hughes MD 04/06/25 01:10 AM ECG Additional Comments: ECG. Normal sinus rhythm rate of 67. QTc 382 Code Status & VTE Plan VTE Prophylaxis Plan VTE Prophylaxis will be ordered: Yes
[2025-04-06 07:46] LABS: Anion Gap 7.0 (3-11); Blood Urea Nitrogen 12.0 mg/dl (6-23); Calcium 8.7 mg/dl (8.6-10.3); Carbon Dioxide 25.0 mmol/L (21-32); Chloride 106.0 mmol/L (98-107); Creatinine Clr Calc Pharmacy 116.2 ml/min; Glucose 104.0 mg/dl (70-99(Fasting)); Magnesium 2.1 mg/dl (1.7-2.4); Potassium 3.8 mmol/L (3.5-5.1); Sodium 138.0 mmol/L (136-145)
[2025-04-06] MEDS: ENOXAPARIN INJ 40 MG/0.4 ML SYR SQ SCH (08:20)
[2025-04-06] MEDS: cefTRIAXone SODIUM 2,000 MG/50 ML BAG IV SCH (08:20)
[2025-04-06] MEDS: DOXYCYCLINE HYCLATE 100 MG CAP PO SCH (08:21)
--- NOTE | 2025-04-06 09:42 | Electrocardiogram Report ---
Test Reason : Blood Pressure : */* mmHG Vent. Rate : 67 BPM Atrial Rate : 67 BPM P-R Int : 154 ms QRS Dur : 94 ms QT Int : 362 ms P-R-T Axes : 51 56 52 degrees QTcB Int : 382 ms Normal sinus rhythm Normal ECG No previous ECGs available Confirmed by Basim Hutson ([id number]) on 04/06/2025 9:42:06 AM Referred By: Jovany SCI Confirmed By: Basim Hutson
[2025-04-06 12:01] LABS: Chlamydia pneumoniae PCR Not Detected (NotDetected); Coronavirus 229E PCR Not Detected (NotDetected); Coronavirus CoV-2 (COVID19)PCR Not Detected (NotDetected); Coronavirus HKU1 PCR Not Detected (NotDetected); Coronavirus NL63 PCR Not Detected (NotDetected); Coronavirus OC43PCR Not Detected (NotDetected); Human Metapneumovirus PCR Not Detected (NotDetected); Parainfluenza Virus 1 PCR Not Detected (NotDetected); Parainfluenza Virus 2 PCR Not Detected (NotDetected); Parainfluenza Virus 3 PCR Not Detected (NotDetected); Parainfluenza Virus 4 PCR Not Detected (NotDetected); Respiratory Syncytial VirusPCR Not Detected (NotDetected); Rhinovirus/Enterovirus PCR DETECTED (NotDetected)
--- NOTE | 2025-04-06 13:18 | Neurology Consultation ---
Date of Consultation April 06, 2025 Assessment & Plan (1) Paresthesia: Recommend MRI brain and cervical spine both with and without contrast Recommend continue frequent neurological assessments Obtain stat CT brain without contrast for any acute neurological decline Continue to monitor/control blood pressure & blood glucose Continue to monitor renal and hepatic function, keep euvolemic Ok from neurology perspective for VTE prophylaxis PT/OT/SLT to eval and treat Telehealth Consultation Telehealth Information Telehealth Information: I performed this visit using a real-time telehealth connection between my location and the patients originating location ([facility]). After connecting through interactive tele-video, patient was identified by name and date of and/or wristband check.Patient (or authorized healthcare goodwill representative) was informed that this was a telemedicine visit and it was being conducted confidentially over secure lines. My office door was closed and no one else was present in the room with me.Patient (or authorized healthcare goodwill representative) provided consent to proceed with the visit, expressed an understanding of privacy and security of the telemedicine visit, and gave permission to have a hospital goodwill representative in the room in order to assist with the visit and to conduct portions of the visit, as needed. I informed the patient (or authorized healthcare goodwill representative) that I reviewed their record and presented the opportunity for them to ask any questions regarding the visit today. The patient agreed to participate. History of Present Illness Reason for Consultation: LE symptoms Requesting Physician: Dr Loyd Attending Physician: Roni Loyd MD History of Present Illness 29yo male with known hx of mood disorder currently residing in an incarceration facility presents with reported episode of near syncope and fall. Reportedly suffered fall with closed head injury but no loss of consciousness. Un fortunately he reports following this fall he reports he cannot move his legs. reports ongoing upper respiratory symptoms for several weeks. He has undergone multimodal imaging of spine without evidence of causal pathology. I have performed televideo consultation. He is alert & oriented; able to answer all questions appropriately, name objects on televideo monitor, repeat phrases and perform complex/embedded commands without deficit. Neurological exam is non lateralizing/nonfocal in terms of motor strength and coordination. He notably reports that he now has sensation in BLE distally = in both feet but more proximally in BLE still feels numbness as if "they are asleep". Allergies Allergy/AdvReac Type Severity Reaction Status Date / Time shellfish derived Allergy Unknown Unknown Verified 04/06/25 04:45 Home Medications Medication Instructions Recorded Confirmed Type duloxetine 30 mg capsule,delayed 30 mg PO DAILY 04/06/25 04/06/25 History release risperidone 0.5 mg tablet 0.5 mg PO BID 04/06/25 04/06/25 History (Risperdal) Patient History Social History Smoking Status: Former smoker Hx Alcohol Use: No Hx Substance Use: No Preferred Language: Romansh Splicer Helper Required: No Beliefs That Will Affect Care: None Current Living Situation: Other Feels Safe at Home: Yes Physical Exam Neurological Examination: Mental Status: Awake and alert. Oriented to person, place, and time. Fluency naming repetition and comprehension appear grossly intact. Affect remains appropriate. CN testing: I: Deferred II: Reports no changes in visual acuity III/IV/: No evidence of gaze preference, hippus, nystagmus or roving eye movements V: Facial sensation reportedly grossly intact to light touch bilaterally VII: Facial movements appear without evidence of asymmetry VIII: Hearing appears grossly intact to loud voice bilaterally IX/X: Palate is unable to be accurately visualized XI: Shoulder shrug appears symmetric/ grossly intact bilaterally XII: Tongue protrudes midline without evidence of biting Motor exam: Strength appears grossly intact in all extremities Tone: Unable to accurately assess via telemedicine Sensory: Sensation is reportedly fluctuant BLE but intact distally in bilateral feet Coordination: Deferred Reflexes: Unable to accurately assess via telemedicine Gait: Deferred Results & Data Vital Signs (Past 12 Hours) Vital Signs Pulse Resp BP Pulse Ox O2 Del Method 04/06/25 08:02 80 19 104/79 98 Room Air 04/06/25 04:02 88 16 108/71 98 Room Air 04/06/25 03:00 69 17 128/84 99 Room Air 04/06/25 02:00 68 17 Laboratory Results Abnormal lab results 04/05/25 04/05/25 04/06/25 Range/Units 19:08 19:10 07:00 MPV 8.7 L 8.9 L (9.4-12.4) fL Lymph # (Auto) 0.76 L 0.98 L (1.20-3.40) K/uL [place] # (Auto) 0.63 H 0.78 H (0.11-0.59) K/uL POC Total CO2 22 L (24-31) mmol/L Glucose 102 H 104 H (70-99(Fasting)) mg/dl POC Glucose (other) 100 H (70-99) mg/dl Lipase 10 L (11-82) U/L Entero/Rhino (PCR) (NotDetected) 04/06/25 Range/Units 10:32 MPV (9.4-12.4) fL Lymph # (Auto) (1.20-3.40) K/uL [place] # (Auto) (0.11-0.59) K/uL POC Total CO2 (24-31) mmol/L Glucose (70-99(Fasting)) mg/dl POC Glucose (other) (70-99) mg/dl Lipase (11-82) U/L Entero/Rhino (PCR) DETECTED A (NotDetected) Diagnostic Findings Cervical Spine CT 04/05/25 19:06 CT CERVICAL SPINE WITHOUT CONTRAST: HISTORY: Trauma TECHNIQUE: Noncontrast CT examination of the cervical thoracic lumbar spine is performed. Coronal and sagittal reformats were created. COMPARISON: None. FINDINGS: CERVICAL SPINE: There is no significant vertebral body height loss. No acute traumatic fracture identified. There is no significant spondylolisthesis. Visualized soft tissues of neck are unremarkable. IMPRESSION: No acute traumatic fracture of the cervical spine. Multilevel degenerative changes as above Chronic right orbital floor defect. Electronically signed by Wally Alonzo 04-05-2025 8:[address] 04/05/25 19:06 CT HEAD: HISTORY: Headaches TECHNIQUE: Noncontrast CT examination of the head is performed. Coronal and sagittal reformats were created. COMPARISON: FINDINGS: There is no evidence of intracranial hemorrhage, focal mass effect or midline shift. No fluid collection is identified. The ventricular system is midline and symmetric. No evidence of acute major vascular territory infarction. No calvarial fracture is identified. The paranasal sinuses and mastoids are well aerated. IMPRESSION: No acute intracranial process identified. Electronically signed by Wally Alonzo 04-05-2025 7:[address] 04/05/25 19:06 CT LUMBAR SPINE WITHOUT CONTRAST: HISTORY: TRAUMA TECHNIQUE: Noncontrast CT examination of the lumbar spine is performed. Coronal and sagittal reformats were created. COMPARISON: None. FINDINGS: LUMBAR SPINE: There is no significant vertebral body height loss. No acute traumatic fracture identified. There is no significant spondylolisthesis. Usual lumbar lordosis is preserved. Mild multilevel degenerative changes characterized by disc space loss, broad based disc bulge/herniations with endplate changes of the vertebral bodies with small marginal osteophytes as well as bilateral facet hypertrophy and thickening of the ligamentum flavum resulting in crowding of the subarticular recesses and narrowing of neural foramina worst at L4-S1. IMPRESSION: No acute traumatic fracture of the lumbar spine. Multilevel degenerative changes as above Electronically signed by Wally Alonzo 04-05-2025 8:[address] 04/05/25 19:06 CT THORACIC SPINE WITHOUT CONTRAST: HISTORY: TRAUMA TECHNIQUE: Noncontrast CT examination of the thoracic spine is performed. Coronal and sagittal reformats were created. COMPARISON: None. FINDINGS: THORACIC SPINE: There is no significant vertebral body height loss. No acute traumatic fracture identified. There is no significant spondylolisthesis. Usual thoracic kyphosis is preserved. Multilevel degenerative changes characterized by disc space loss with endplate changes of the vertebral bodies with small marginal osteophytes. IMPRESSION: No acute traumatic fracture of the thoracic spine. Multilevel degenerative changes as above Electronically signed by Wally Alonzo 04-05-2025 7:59 PM Chest CTA 04/05/25 19:07 CT PULMONARY ANGIOGRAM. HISTORY: Chest pain TECHNIQUE: Enhanced CT examination of the chest was performed using pulmonary embolism protocol. IV CONTRAST: 100 mL of OMNIPAQUE 300 COMPARISON: FINDINGS: PULMONARY ARTERIES: No filling defect identified to the segmental level. LYMPH NODES: No lymphadenopathy by size criteria. CARDIOVASCULAR: Normal cardiac size. No pericardial effusion. No aortic aneurysm. There are coronary artery calcifications in keeping with coronary artery disease. MEDIASTINUM: No solid or cystic mediastinal masses. The esophagus is normally decompressed. LUNGS/PLEURA: The central tracheo-bronchial tree is patent. Patchy infiltrates in the left upper lobe (series 10, image 91). No pleural effusion or pneumothorax. No suspicious pulmonary nodules. BONES: No suspicious osseous lesions. OTHER: There is a large amount of intravascular contrast noted over the left shoulder and the left chest wall that also demonstrate swelling. This could be due to IV infiltration. Please clinically correlate. VISUALIZED LOWER NECK: Unremarkable. VISUALIZED UPPER ABDOMEN: Unremarkable IMPRESSION: No pulmonary embolism identified to the segmental level. No evidence of definite trauma in the thorax. Patchy pneumonia in the left upper lobe There is a large amount of intravascular contrast noted over the left shoulder and the left chest wall that also demonstrate swelling. This could be due to IV infiltration. Please clinically correlate. Electronically signed by Rodney Alonzoita 04-05-2025 8:20 PM Chest X-Ray 04/05/25 19:07 EXAM: Portable AP chest radiograph TECHNIQUE: AP portable radiograph of the chest was obtained. INDICATION: Trauma Comparison: None FINDINGS: LINES and TUBES: None CARDIOVASCULAR: Cardiac silhouette is normal in size. LUNGS/PLEURA: Patchy infiltrates in the right upper lobe no significant pleural fluid. No discernible pneumothorax. OSSEOUS/OTHER: No displaced acute osseous process identified. IMPRESSION: Patchy pneumonia in the right upper lobe Electronically signed by Rodney Alonzoita 04-05-2025 8:20 PM Lumbar Spine MRI 04/05/25 21:12 Exam(s): MRI L SPINE Without Contrast EXAM: MR Lumbar Spine Without Intravenous Contrast CLINICAL HISTORY: Reason for exam: low extremity paralysis and paresthesias s/p fall. TECHNIQUE: Magnetic resonance images of the lumbar spine without intravenous contrast in multiple planes. COMPARISON: No relevant prior studies available. FINDINGS: Vertebrae: Unremarkable. No acute fracture. Spinal cord: Unremarkable. Normal signal. Soft tissues: Unremarkable. DISCS/SPINAL CANAL/NEURAL FORAMINA: L1-L2: Unremarkable. No significant disc disease. No stenosis. L2-L3: Unremarkable. No significant disc disease. No stenosis. L3-L4: Unremarkable. No significant disc disease. No stenosis. L4-L5: Unremarkable. No significant disc disease. No stenosis. L5-S1: Unremarkable. No significant disc disease. No stenosis. IMPRESSION: Normal lumbar spine MRI. Electronically signed by: Mendoza Hughes MD 04/06/25 01:15 AM Thoracic Spine MRI 04/05/25 21:12 Exam(s): MRI T SPINE Without Contrast EXAM: MR Thoracic Spine Without Intravenous Contrast CLINICAL HISTORY: Reason for exam: low extremity paralysis and paresthesias s/p fall. TECHNIQUE: Magnetic resonance images of the thoracic spine without intravenous contrast in multiple planes. COMPARISON: CT T-spine from 04/05/2025 FINDINGS: Vertebrae: Unremarkable. No acute fracture. Discs/spinal canal/neural foramina: No acute findings. No significant disc disease. No spinal canal stenosis. Spinal cord: Unremarkable. Normal signal. Soft tissues: Unremarkable. IMPRESSION: Normal thoracic spine MRI. Electronically signed by: Mendoza Hughes MD 04/06/25 01:10 AM Medications Administered Home Medications Medication Instructions Recorded Confirmed Last Taken duloxetine 30 mg capsule,delayed 30 mg PO DAILY 04/06/25 04/06/25 Unknown release risperidone 0.5 mg tablet 0.5 mg PO BID 04/06/25 04/06/25 Unknown (Risperdal) Active Medications Generic Name Dose Route Start Last Admin Trade Name Alessandra PRN Reason Stop Dose Admin Doxycycline Hyclate 100 mg 04/06/25 09:00 04/06/25 08:21 Doxycycline Hyclate 100 Mg Cap PO 04/11/25 08:59 100 mg BID RANDALL Administration Duloxetine HCl 30 mg 04/06/25 09:00 04/06/25 08:21 Duloxetine Hcl 30 Mg Cap PO 05/06/25 08:59 30 mg DAILY RANDALL Administration Enoxaparin Sodium 40 mg 04/06/25 09:00 04/06/25 08:20 Enoxaparin Inj 40 Mg/0.4 Ml Syr SQ 05/06/25 08:59 40 mg Q24H RANDALL Administration Ceftriaxone Sodium 2,000 mg in 50 mls @ 100 mls/hr 04/06/25 08:00 04/06/25 08:53 Rocephin IV 04/11/25 07:59 Infused Q24H RANDALL Infusion Risperidone 0.5 mg 04/06/25 09:00 04/06/25 08:21 Risperidone 0.5 Mg Tablet PO 05/06/25 08:59 0.5 mg BID RANDALL Administration
--- NOTE | 2025-04-06 13:26 | Communication Note ---
Date of Service: April 06, 2025 Patient seen and examined at bedside. He is comfortable; not in distress. Reports that he is not able to move his legs but able to move his feet. Reports cough and rhinorrhea. On physical examination; Constitutional: Awake, alert oriented x 3. Respiratory: Bilateral vesicular breath sound Cardiovascular: RRR, no murmur, no edema Vessels: no JVD or carotid bruit Chest: normal inspection of chest Abdomen: normal bowel sounds, soft, nontender, no hepatosplenomegaly Musculoskeletal: no cyanosis or clubbing, extremities motor strength 5/5 Skin: no rashes, warm and dry normal turgor Neurologic: PERRL, EOMI, accommodation nl, no face palsy, no dysarthria CN's II- XI intact bilaterally. Able to plantarflex and dorsiflex foot. Unable to move his thigh and leg. Reports no sensation in legs except for feet Psychiatric: A+Ox3, euthymic affect Assessment/plan Lower extremity weakness Reports weakness in thigh and leg with decreased sensation but able to move his feet with sensation intact. MRI of lumbar spine, thoracic spine did not show any acute findings CT headno acute findings Will consult neurology for additional recommendation. Rhinovirus infection Pneumonia Patchy pneumonia in left upper extremity. Continue on antibiotic Supportive care Mood disordercontinue on Home medication Please note the above document was generated using voice recognition software. It may contain grammatical, syntax or spelling errors. Any formal questions or concerns about the content, text or information contained within the body of this dictation should be directly addressed to the provider for clarification
--- NOTE | 2025-04-06 15:34 | XCELERA ---
[id number]
[2025-04-06] MEDS: GADOBUTROL 10ML VIAL IV ONE (19:13)
--- NOTE | 2025-04-07 08:53 | Magnetic Resonance Report ---
EXAM: MR brain wo con CLINICAL HISTORY: LE weakness TECHNIQUE: MRI of the brain was performed without contrast, with multiplanar sequences obtained. COMPARISON: 04/05/2025 CT reviewed. FINDINGS: Brain Parenchyma: Two subcortical white matter T2WI/FLAIR hyperintense lesions measure about 1.3cm and 0.7cm in the left precentral sulcus region. No evidence of acute infarction or hemorrhage. Normal rollins-white matter differentiation. Ventricles and Sulci: Normal size and configuration of the lateral ventricles, third ventricle, and fourth ventricle. No evidence of hydrocephalus or ventriculomegaly. Sylvian fissures, sulci, and cisterns are within normal limits. Posterior Fossa: The cerebellum and brainstem appear normal without evidence of mass lesions or signal abnormalities. Cranial Nerves: Normal course and appearance of cranial nerves identified. Vessels: No evidence of vascular malformations or aneurysms. Intracranial arteries and veins appear normal without evidence of stenosis or occlusion. Orbits and Skull Base: Orbits and skull base structures are normal without evidence of abnormalities. IMPRESSION: Two subcortical white matter T2WI/FLAIR hyperintense lesions measure about 1.3cm and 0.7cm in the left precentral sulcus region. Nonspecific, could be due to an atypical demyelination process or autoimmune disease. Please correlate with clinical and lab data. Follow-up is advised Electronically signed by Ramirez Sanchez 04-07-2025 08:52 AM
--- NOTE | 2025-04-07 09:14 | Magnetic Resonance Report ---
EXAM: MR cervical spine wo/w con CLINICAL HISTORY: LE weakness. TECHNIQUE: MRI of the cervical spine was performed with and without contrast. Sequences obtained include sagittal T1-weighted, T2-weighted, STIR (Short Tau Inversion Recovery), and axial T2-weighted sequences. Additional sequences such as gradient echo (GRE) or post-contrast T1-weighted images may have been included based on clinical indication. COMPARISON: CT 04/05/2025. FINDINGS: Vertebral Alignment: Straightening of the cervical spine due to muscle spasms. Normal alignment of the cervical spine without evidence of fracture or subluxation. Vertebral Bodies and Intervertebral Discs: Normal vertebral body height and alignment. Intervertebral discs demonstrate normal hydration. Oxocf-la-mtenm analysis: C2-C3: There is no significant disc pathology. Normal morphology of the ligamentum flava. No arthropathy of the uncovertebral and zygapophyseal joints. No significant spinal canal stenosis C3-C4: There is a mild, broad-based disc bulge measuring 2 mm, causing mild ventral indentation on the thecal sac and mild indentation in the bilateral neural foramina. C4-C5: There is a mild, broad-based disc bulge measuring 1.8 mm, causing mild ventral indentation on the thecal sac and mild indentation in the bilateral neural foramina. C5-C6: There is a mild, broad-based disc bulge measuring 2.2 mm, causing mild ventral indentation on the thecal sac. No arthropathy of the uncovertebral and zygapophyseal joints. C6-C7: There is no significant disc pathology. Normal morphology of the ligamentum flava. No arthropathy of the uncovertebral and zygapophyseal joints. No significant spinal canal stenosis C7-T1: There is no significant disc pathology. Normal morphology of the ligamentum flava. No arthropathy of the uncovertebral and zygapophyseal joints. No significant spinal canal stenosis Spinal Cord and Nerve Roots: Spinal cord demonstrates normal signal intensity and caliber. No evidence of cord compression or intradural pathology. Nerve roots appear unremarkable bilaterally. No exiting nerve root or spinal cord compression. Normal morphology of the ligamentum flava. No arthropathy of the uncovertebral and zygapophyseal joints. Soft Tissues: Paraspinal soft tissues appear normal without evidence of abnormal signal intensity or mass lesions. Vascular Structures: Normal appearance of the visualized vascular structures. No evidence of aneurysm, dissection, or significant atherosclerosis. Normal enhancement post-contrast. IMPRESSION: 1. The spinal cord demonstrates normal signal intensity and caliber. No abnormal enhancement was noted. 2. Multilevel small disc bulges were noted as described above. No significant changes. Electronically signed by Ramirez Sanchez 04-07-2025 09:13 AM
--- NOTE | 2025-04-07 09:33 | Electrocardiogram Report ---
Test Reason : Blood Pressure : */* mmHG Vent. Rate : 70 BPM Atrial Rate : 70 BPM P-R Int : 154 ms QRS Dur : 94 ms QT Int : 366 ms P-R-T Axes : 57 64 53 degrees QTcB Int : 395 ms Normal sinus rhythm Possible Left atrial enlargement Borderline ECG When compared with ECG of 05-Apr-2025 19:04, No significant change was found Confirmed by Basim Hutson ([id number]) on 04/07/2025 9:33:12 AM Referred By: [facility] Confirmed By: Basim Hutson
--- NOTE | 2025-04-07 10:49 | Hospitalist Progress Note ---
Date of Service April 07, 2025 Assessment & Plan (1) Near syncope: Plan: 29-year-old male coming from alf with past med history significant for mood disorder presents with near syncope and fall. Patient states he just moved to the new alf yesterday. He was eating and when he got up he felt lightheaded and fell backwards and hit his head. No loss of consciousness. Patient states since fall is feeling numbness both legs. Says he could not feel his legs but he can feel his feet. Not moving his legs. Patient states has ongoing cough for 2to 3 weeks. Having congestion, stuffy nose and sore throat for 2 to 3 weeks. Has some headache. Feeling hot and cold. Appetite is okay. Currently denies any chest pain. Currently denies any shortness of breath. No nausea. No abdominal pain. Prior to fall was having normal bowel and bladder movements. Hemodynamics are okay. Lower extremity weakness/numbness patient presented with weakness in thigh and leg with decreased sensation but able to move his feet with sensation intact. MRI of lumbar spine, thoracic spine did not show any acute findings CT headno acute findings MRI of the brain showed Two subcortical white matter T2WI/FLAIR hyperintense lesions measure about 1.3cm and 0.7cm in the left precentral sulcus region. MRI cervical spineno acute finding 04/07patient able to move his lower extremities; however no sensation in thigh and legs. Does not withdraw to noxious stimuli. Able to get up and go to the bathroom without any issues. Discussed with Dr. Prieto from neurology again on 04/07; he recommends MRI of the brain with contrast to reevaluate the lesions further. Rhinovirus infection Pneumonia Patchy pneumonia in left upper extremity. Continue on antibiotic Supportive care Mood disordercontinue on Home medication DVT prophylaxis Lovenox Disposition Telemetry Full code. Time spent evaluating patient, direct bedside care, chart review, placing orders, interpretation of diagnostic studies, discussion with consultants, patient, and family members, as well as other required patient management activities is 50 minutes Please note the above document was generated using voice recognition software. It may contain grammatical, syntax or spelling errors. Any formal questions or concerns about the content, text or information contained within the body of this dictation should be directly addressed to the provider for clarification Admission and Anticipated Discharge Date Admission Date: April 06, 2025 Subjective Patient seen and examined at bedside. Patient now is able to move his legs without any issues. However still continues to report decreased sensation. He is able to get up and go to the bathroom without any issues Review of Systems Review of Systems: All systems reviewed & are unremarkable except as noted in Subjective Physical Exam Physical Exam: General- Not in acute distress. Head- atraumatic Eyes- PERRL. ENT- oropharynx clear Neck- supple, no JVD. Lungs- clear to auscultation no wheezing or crackles. Heart- regular rhythm; no murmur, no gallop. Abdomen- normal bowel sounds, soft, nontender, no distension Extremities- no pretibial edema, no erytehma Neuro- alert, oriented x PERRL, no facial palsy; no dysarthria; no sensation in legs except feet, moving his legs without any issues Results & Data Results & Data Vital Signs (Past 12 Hours) Vital Signs Temp Pulse Resp BP BP Pulse Ox Pulse Ox 04/07/25 08:41 36.8 C 94 H 17 106/72 99 04/07/25 08:00 04/07/25 04:00 100 04/07/25 03:29 36.3 C L 94 H 18 127/82 100 04/06/25 23:30 36.9 C 97 H 18 117/79 96 O2 Del Method O2 Del Method 04/07/25 08:41 Room Air 04/07/25 08:00 Room Air 04/07/25 04:00 Room Air 04/07/25 03:29 Room Air 04/06/25 23:30 Room Air
[2025-04-07] MEDS: GADOBUTROL 30ML VIAL IV ONE (13:18)
--- NOTE | 2025-04-07 13:41 | Magnetic Resonance Report ---
Clinical History: Follow-up for abnormal noncontrast MRI Technique: Multiple T1 and T2-weighted magnetic resonance images were obtained of the brain both before and after the administration of intravenous gadolinium contrast Comparison is made to the noncontrast MRI dated 04/06/2025 Findings: There are 2 areas of increased T2 signal intensity involving the subcortical white matter of the left frontal lobe, measuring 11 mm and 6 mm. No other definite focus of demyelination is seen. There is no sign of acute or old infarction. No mass lesion or other area of abnormal enhancement is identified. There is no intracranial hemorrhage or other fluid collection. No midline shift or other form of herniation is seen. There is no hydrocephalus. The pituitary gland appears normal. Normal flow-voids are seen within the arteries of the [id number]. The orbits and paranasal sinuses appear normal. The mastoid air cells appear clear Impression: Two foci of subcortical white matter abnormality involving the left frontal lobe, without appreciable enhancement. The appearance is not typical for multiple sclerosis. Possible etiologies include progressive multifocal leukoencephalopathy and chronic migraine headaches Electronically signed by David White 04-07-2025 13:41 PM
[2025-04-08 11:31] VITALS: BP 128/87; PULSE 103; RESP 18; TEMP 98.8; O2SAT 98
--- NOTE | 2025-04-08 12:05 | Discharge Summary ---
Date of Service April 08, 2025 Admission HPI Per Admitting Provider 29-year-old male coming from detention with past med history significant for mood disorder presents with near syncope and fall. Patient states he just moved to the new detention yesterday. He was eating and when he got up he felt lightheaded and fell backwards and hit his head. No loss of consciousness. Patient states since fall is feeling numbness both legs. Says he could not feel his legs but he can feel his feet. Not moving his legs. Patient states has ongoing cough for 2to 3 weeks. Having congestion, stuffy nose and sore throat for 2 to 3 weeks. Has some headache. Feeling hot and cold. Appetite is okay. Currently denies any chest pain. Currently denies any shortness of breath. No nausea. No abdominal pain. Prior to fall was having normal bowel and bladder movements. Hemodynamics are okay. Past medical history. As mentioned above. Past surgical history. Patient denies any surgeries. Social history. Used to smoke e-cigarettes. Likely twice alcohol in the past. Used to smoke marijuana Family history. Mother had heart problems. Admission Exam Per Admitting Provider General- Not in acute distress. Head- atraumatic Eyes- PERRL. ENT- oropharynx clear Neck- supple, no JVD. Lungs- clear to auscultation no wheezing or crackles. Heart- regular rhythm; no murmur, no gallop. Abdomen- normal bowel sounds, soft, nontender, no distension Extremities- no pretibial edema, no erytehma Neuro- alert, oriented x PERRL, no facial palsy; no dysarthria; no sensation in legs except feet, not moving legs Principal Diagnosis Lower extremity weakness/numbness Rhinovirus infection Pneumonia Discharge Exam General- Not in acute distress. Head- atraumatic Eyes- PERRL. ENT- oropharynx clear Neck- supple, no JVD. Lungs- clear to auscultation no wheezing or crackles. Heart- regular rhythm; no murmur, no gallop. Abdomen- normal bowel sounds, soft, nontender, no distension Extremities- no pretibial edema, no erytehma Neuro- alert, oriented x PERRL, no facial palsy; no dysarthria; no sensation in legs except feet, moving his legs without any issues Discharge Data Allergies Allergy/AdvReac Type Severity Reaction Status Date / Time shellfish derived Allergy Unknown Unknown Verified 04/06/25 04:45 Consultations 04/06/25 02:06 ED Decision to Admit Stat 04/06/25 09:49 Consult Neurology Routine Ordered Studies 04/05/25 19:06 CT cervical spine wo con Stat CT head/brain wo con Stat CT lumbar spine wo con Stat CT thoracic spine w con Stat 04/05/25 19:07 CT angio chest PE protocol Stat 04/05/25 21:12 MRI Lumbar Spine [MR lumbar spine wo con] Stat MRI Thoracic [MR thoracic spine wo con] Stat 04/06/25 14:23 MRI Brain [MR brain wo con] Urgent MRI Cervical [MR cervical spine wo/w con] Urgent 04/07/25 10:29 MRI Brain [MR brain wo/w con] Routine Hospital Course (1) Near syncope: 29-year-old male coming from detention with past med history significant for mood disorder presents with near syncope and fall. Patient states he just moved to the new detention yesterday. He was eating and when he got up he felt lightheaded and fell backwards and hit his head. No loss of consciousness. Patient states since fall is feeling numbness both legs. Says he could not feel his legs but he can feel his feet. Not moving his legs. Patient states has ongoing cough for 2to 3 weeks. Having congestion, stuffy nose and sore throat for 2 to 3 weeks. Has some headache. Feeling hot and cold. Appetite is okay. Currently denies any chest pain. Currently denies any shortness of breath. No nausea. No abdominal pain. Prior to fall was having normal bowel and bladder movements. Hemodynamics are okay. Lower extremity weakness/numbness patient presented with weakness in thigh and leg with decreased sensation but able to move his feet with sensation intact. MRI of lumbar spine, thoracic spine did not show any acute findings CT headno acute findings MRI of the brain showed Two subcortical white matter T2WI/FLAIR hyperintense lesions measure about 1.3cm and 0.7cm in the left precentral sulcus region. MRI cervical spineno acute finding 04/07patient able to move his lower extremities; however no sensation in thigh and legs. Does not withdraw to noxious stimuli. Able to get up and go to the bathroom without any issues. Discussed with Dr. Prieto from neurology again on 04/07; he recommends MRI of the brain with contrast to reevaluate the lesions further. Results- "Two foci of subcortical white matter abnormality involving the left frontal lobe, without appreciable enhancement. " Results discussed again- Dr. Prieto reports that the imaging does not reveal enhancement so not etiology of current presentation; recommend outpatient follow-up Rhinovirus infection Pneumonia Patchy pneumonia in left upper extremity. 5 days of antiboitoics Patient discharged back to correctional facility Please note the above document was generated using voice recognition software. It may contain grammatical, syntax or spelling errors. Any formal questions or concerns about the content, text or information contained within the body of this dictation should be directly addressed to the provider for clarification Total Time Total Time Spent Total Time Spent (In Minutes): 45 Total Time Includes: Examination of the Patient, Discharge Planning, Medication Reconciliation, Communication With Other Providers and Other Discharge Plan Discharge Items Patient Disposition: Correction[facility] Facility Reason For Visit: NEAR SYNCOPE, PNEUMONIA Discharge Diagnosis: Lower extremity weakness/numbness Rhinovirus infection Pneumonia Condition on Discharge: Fair Activity: Resume your previous activity Non-emergency contact: Primary Care Provider Call non-emergency contact if: you have any medication questions and your symp toms worsen Follow-up/Referrals: Jovany GUAJARDO [Primary Care Provider] - Diet: Regular Addtl Attending Provider Instructions: You were admitted to the hospital due to lower extremity weakness/numbness. He underwent imaging including MRI brain, cervical spine, thoracic spine and lumbar spine. The MRI of the brain showed T2WI/FLAIR hyperintense lesions measure about 1.3cm and 0.7cm in the left precentral sulcus region. You underwent MRI of the brain with contrast which did not show enhancement of this lesion. Discussion was done with neurology; they recommend outpatient follow-up. You are found to have mild pneumonia in the left upper lung. You have been prescribed cefdinir and doxycycline to be taken for 2 days. Pending Studies at Discharge: No Stand-Alone Forms: [facility] Skilled Items Patient informed of condition?: Yes Discharge Level of Care: Other Communicable Disease: Yes (rhinovirus infection) Discharge Prognosis: Stable Lines: None Urinary Catheter: No Medications and DC Order Prescriptions: New doxycycline hyclate 100 mg Capsule 100 mg PO BID 2 Days Qty: 4 0RF cefdinir 300 mg capsule 300 mg PO BID 2 Days Qty: 4 0RF Continued risperidone [Risperdal] 0.5 mg Tablet 0.5 mg PO BID duloxetine 30 mg Capsule,Delayed Release(Dr/Ec) 30 mg PO DAILY Discharge Orders: Discharge Order (Routine); Ordered 04/08/25 Ordered By: Roni Mc/Other Patient Handouts: Adult Self-Care for Colds, What Is Pneumonia? Admission Data Admit Date/Time: 04/06/25 03:09 Attending Provider: Roni Loyd Admit Provider: Jacob Alexandre Primary Care Provider: Jovany GUAJARDO Other Providers: Jacob Alexandre; Aleah Guardado; Waqas Freedman; Aleah Leon; Arturo Luong; Kavon Maldonado; Juan Pablo Ramriez; Jayson Solorio; Mayela Bradshaw; Lele Roman; Victor M Segura; Tayla Mazariegos; Viet Whatley; Eda Rashid; Jayson Prieto; Kayy Garcia; Franci Parish; Orlin Beyer Other Interventions: Discharge Summary Assessment (RN) Last Done: 04/08/25 11:59
--- NOTE | 2025-04-08 14:35 | Electrocardiogram Report ---
Test Reason : Blood Pressure : */* mmHG Vent. Rate : 58 BPM Atrial Rate : 58 BPM P-R Int : 144 ms QRS Dur : 100 ms QT Int : 388 ms P-R-T Axes : -1 59 49 degrees QTcB Int : 380 ms Sinus bradycardia Minimal voltage criteria for LVH, may be normal variant Borderline ECG When compared with ECG of 05-Apr-2025 19:40, ST elevation now present in Anterior leads T wave inversion no longer evident in Anterior leads Confirmed by Pratik Orourke ([id number]) on 04/08/2025 2:34:55 PM Referred By: Jovany SCI Confirmed By: Pratik Orourke
== END 2025-04-08 13:55 | DRG 195 ==
LOC: ED 18:57 → EDINP 04-06 03:09 → 2N 04-06 17:17